=== PATIENT | female | born 1960 | race Asian ===

== ENCOUNTER 2023-06-24 21:34 | Emergency (ER) | payer BC ==
[~2023-06-24] VITALS: Ht 165.1 cm; Wt 55.3 kg
[2023-06-24 21:45] VITALS: BP_SYST 126; PULSE 68; RESP 16; TEMP 97.5; O2SAT 96
[2023-06-24] MEDS: ONDANSETRON 4 MG ODT TAB PO ONE (22:46)
[2023-06-25 00:26] LABS: BASOPHILS % (AUTO) 0.2 % (0.0-2.0); EOSINOPHILS % (AUTO) 0.1 % (0.0-4.0); HEMATOCRIT 41.2 % (36-48); HEMOGLOBIN 14.5 g/dL (12.0-16.0); LYMPHOCYTES # (AUTO) 0.8 K/uL (1.0-5.5); LYMPHOCYTES % (AUTO) 8.6 % (20.5-51.5); MEAN CORPUSCULAR HEMOGLOBIN 32 pg (27-31); MEAN CORPUSCULAR HGB CONC 35 % (32-36); MEAN CORPUSCULAR VOLUME 92 fL (79.0-98.0); MONOCYTES # (AUTO) 0.3 K/uL (0.0-1.0); MONOCYTES % (AUTO) 2.8 % (1.7-9.3); NEUTROPHILS # (AUTO) 7.9 K/uL (1.8-7.7); NEUTROPHILS % (AUTO) 88.3 % (40.0-70.0); PLATELET COUNT (AUTO) 206 K/uL (130-430); RED BLOOD CELL COUNT(AUTO) 4.48 MIL/uL (4.2-6.2); RED CELL DISTRIBUTION WIDTH 11.9 % (9.0-15.0); WHITE BLOOD COUNT (AUTO) 8.9 K/uL (4.8-10.8)
[2023-06-25 00:29] LABS: BILIRUBIN,URINE NEGATIVE (NEGATIVE); BLOOD, URINE 2+ (NEGATIVE); COLOR,URINE YELLOW (YELLOW); GLUCOSE,URINE NEGATIVE (NEGATIVE); KETONES,URINE TRACE (NEGATIVE); LEUKOCYTE ESTERASE ,URINE 1+ (NEGATIVE); NITRITE, URINE NEGATIVE (NEGATIVE); PROTEIN URINE NEGATIVE (NEGATIVE)
[2023-06-25 00:59] LABS: ALBUMIN 4.2 g/dL (3.4-4.8); BILIRUBIN,DIRECT 1.2 mg/dL (0.0-0.3); CALCIUM 9.6 mg/dL (8.4-11.0); CREATININE 0.71 mg/dL (0.55-1.30); POTASSIUM 3.9 mmol/L (3.5-5.1); TOTAL BILIRUBIN 2.7 mg/dL (0.0-1.0); TOTAL PROTEIN, SERUM 8.2 g/dL (6.4-8.3)
[2023-06-25] MEDS ORDERED: PRO40 PO (01:19)
[2023-06-25] MEDS: KETOROLAC TROMETHAMINE 30 MG VIAL IM ONE (01:19)
[2023-06-25] MEDS ORDERED: ONDA-8 TL (01:19)
[2023-06-25] MEDS: MAG-AL HYDROX/SIMETH 30 ML UDC PO ONE (01:20)
[2023-06-25 01:36] LABS: CLARITY/URINE SLIGHTLY CLOUDY (CLEAR)
[2023-06-25 01:37] LABS: BACTERIA,URINE FEW /HPF (None Seen); WBC,URINE 20-50 /HPF (0-3)
[2023-06-25 07:05] VITALS: BP_SYST 127; PULSE 65; RESP 18; TEMP 97.3; O2SAT 94
== END 2023-06-25 07:11 | disposition short-term general hospital (02) ==
LOC: SED 21:34
DX: K80.50 Calculus of bile duct without cholangitis or cholecystitis without obstruction (principal); K85.90 Acute pancreatitis without necrosis or infection, unspecified; R10.13 Epigastric pain; R79.89 Other specified abnormal findings of blood chemistry; Z20.822 Contact with and (suspected) exposure to COVID-19
CPT/HCPCS: 99285; 74176; 87426; 80076; 80048; 81000; 81001; 83690; 85025; 87086; 36415; 76705; 96372; 81015; Q0162; J1885